=== PATIENT | male | born 1960 | race Caucasian/White ===

== ENCOUNTER 2018-05-17 23:50 | Emergency (ER) | payer OTHER ==
[~2018-05-17] VITALS: Ht 180.3 cm; Wt 90.3 kg
[~2018-05-17 23:50] MED LIST: ACCUPRIL40 MG PO; ASPIR 8181 MG PO; ASPIRIN325; ASPIRIN325 PO; BENTYL 10 MG CA10 MG PO; BENTYL 20 MG TA20 M1 PO; CARVEDILOL6.25 MG PO; CORTIZONE-10 PL28 GM TP; COUMADIN 5 MG TA5 M1 PO; GABAPENTIN 100100 MG PO; HYDROCODONE-AP1 EAC6 PO; IMDUR 30 MG TAB30 M1 PO; LISINOPRIL10 MG; LISINOPRIL10 MG PO; LISINOPRIL2.5 MG PO; LOPRESSOR 50 MG50 M1; LOPRESSOR 50 MG50 M1 PO; MULTIVITAMINS PO; MYLANTA GELCAP1 EACH PO; NITROGLYCERIN0.4 MG SL; NORTRIPTYLINE H25 M3; OMEPRAZOLE40 MG PO; PERCOCET 5-3251 EACH PO; PERCOCET PO; PRAVACHOL; PRAVASTATIN SOD20 MG PO; PREDNISONE 20 M20 MG PO; PRILOSEC40 MG PO; PROTONIX 20 MG20 M1 PO; PROTONIX40 MG PO; REGLAN 10 MG TA10 MG PO; TAMSULOSIN HCL0.4 M1 PO; VALIUM5 MG PO; VICODIN 5-5001 EACH; XARELTO10 MG PO; XARELTO15 MG PO; XARELTO20 MG PO; ZANTAC 150MG T150 MG; ZOFRAN 4 MG ORAL4 MG PO; ZOFRAN ODT4 MG PO
[2018-05-18] MEDS ORDERED: DURAGESIC1 EAC4 TRANSDERM (00:01)
[2018-05-18] MEDS ORDERED: AUGMENTIN 875-1 EACH PO (01:11)
[2018-05-18] MEDS ORDERED: ZOFRAN ODT4 MG PO (01:12)
[2018-05-18 01:22] VITALS: BP 113/72
== END 2018-05-18 01:23 | disposition home or self-care (01) ==
LOC: M.ERS 23:50
DX: S61.051A Open bite of right thumb without damage to nail, initial encounter (principal); S81.852A Open bite, left lower leg, initial encounter; F41.0 Panic disorder [episodic paroxysmal anxiety]; I10 Essential (primary) hypertension; Z86.711 Personal history of pulmonary embolism; Z86.718 Personal history of other venous thrombosis and embolism; Z88.8 Allergy status to other drugs, medicaments and biological substances; Z88.5 Allergy status to narcotic agent; Z87.891 Personal history of nicotine dependence; W54.0XXA Bitten by dog, initial encounter; Y93.89 Activity, other specified; Y92.89 Other specified places as the place of occurrence of the external cause; Y99.8 Other external cause status